=== PATIENT | female | born 1995 | race Caucasian/White ===

== ENCOUNTER 2017-03-15 16:42 | Emergency (ER) | payer OTHER ==
[2017-03-15 16:54] VITALS: BP 95/63; PULSE 69; RESP 16; TEMP 97.7; O2SAT 99
[2017-03-15 17:28] LABS: COLOR YELLOW; LEUKOCYTE ESTERASE,URINE 1+ (NEGATIVE); NITRITE,URINE NEGATIVE (NEGATIVE)
[2017-03-15] MEDS ORDERED: CEPHALEXIN 500 MG CAP PO ONE (17:41)
[2017-03-15] MEDS ORDERED: PHENAZOPYRIDINE HCL 200 MG TAB PO ONE (17:41)
[2017-03-15 17:46] LABS: RBC,URINE 0-1 /hpf (0-3); WBC,URINE 50-182 /hpf (0-3)
[2017-03-15 17:47] LABS: BACTERIA 2+ /hpf (NONE SEEN); MUCUS TRACE /lpf (NONE-1+)
--- NOTE | 2017-03-15 18:00 | UCPHY ---
H & P Time Seen by Provider: 03/15/17 17:34 Patient Type: Established HPI/ROS: This patient complains of 4 day history of suprapubic pain in the bladder area associated with dysuria, frequency and urgency. She has no other associated symptoms except for nausea without vomiting. She notes no clear exacerbating or alleviating factors. She has intermittent suprapubic pain for the past year never to this moderate degree. It is usually very mild. ROS: No fevers or chills. No other constitutional symptoms. HEENT: No complaints GI: Again nausea but no vomiting. No upper belly pain. : Last menstrual period was normal timing. She has no vaginal discharge. She has mild flank pain to the right side over the past 24 hours associated with this. Integumentary: No skin rash. 7 point ROS is otherwise negative. Past Medical/Surgical History: otherwise healthy Smoking Status: Never smoked Physical Exam: Physical Exam Vital signs are normal. General: No acute distress Eyes: Pupils equal and react to light. Extraocular motions are intact. Lungs: No respiratory distress. Cardiac: Brisk capillary refill is intact throughout. Abdomen: Soft with mild suprapubic tenderness. No guarding or rebound. Back: Minimal right CVA tenderness Skin: No rash or pallor. Neuro: Alert INITIAL DIFFERENTIAL DIAGNOSIS: After history and physical exam differential diagnosis was considered for cystitis, interstitial cystitis, pyelonephritis, ureteral stone. Constitutional: Initial Vital Signs Temperature (C) 36.5 C 03/15/17 16:49 Heart Rate 69 03/15/17 16:49 Respiratory Rate 16 03/15/17 16:49 Blood Pressure 95/63 L 03/15/17 16:49 O2 Sat (%) 99 03/15/17 16:49 O2 Delivery Mode Room Air Allergies/Adverse Reactions: No Known Allergies Allergy (Unverified 08/02/14 15:23) Home Medications: Medication Instructions Recorded Cabergoline 09/14/16 Cephalexin [Keflex (*)] 500 mg PO TID #21 cap 03/15/17 Phenazopyridine HCl [Pyridium 200 mg PO TID PRN #6 tab 03/15/17 200mg (RX)] MDM/Departure - MDM Diagnostics: UA consistent with UTI test negative Medications Given: Discontinued Medications Cephalexin HCl (Keflex) 500 mg PO EDNOW ONE PRN Reason: Protocol Stop: 03/15/17 17:42 Last Admin: 03/15/17 17:54 Dose: 500 mg Phenazopyridine HCl (Pyridium) 200 mg PO EDNOW ONE Stop: 03/15/17 17:42 Last Admin: 03/15/17 17:54 Dose: 200 mg ED Course/Re-evaluation: Discussion: Patient with findings most consistent with cystitis. Cannot rule out a very early pyelonephritis but no fevers or other significant findings except minimal CVA tenderness. - Depart Disposition: Home, Routine, Self-Care Clinical Impression: Cystitis Condition: Good Instructions: Urinary Tract Infection in Women (ED) Additional Instructions: Diagnosis: Cystitis Plan: Drink plenty fluids Keflex antibiotic Peridium for burning with urination if needed Return for any significant worsening despite treatment plan. Prescriptions: Cephalexin [Keflex (*)] 500 mg PO TID #21 cap Phenazopyridine HCl [Pyridium 200mg (RX)] 200 mg PO TID PRN #6 tab PRN Reason: dysuria Referrals: Alejandro Martinez MD [Primary Care Provider] - As per Instructions - PQRS PQRS Measurement: NA
== END 2017-03-15 18:08 | disposition home or self-care (01) ==
LOC: CED 16:42
DX: N30.00 Acute cystitis without hematuria (principal)
CPT/HCPCS: 81003-PO; 81015-PO; 81025-PO; 99214-PO; G0463-PO